=== PATIENT | male | born 1965 | race Caucasian/White ===

== ENCOUNTER 2019-04-15 09:47 | Emergency (ER) | payer MEDICAID ==
[~2019-04-15] VITALS: Ht 185.4 cm; Wt 104.0 kg
[2019-04-15] MEDS ORDERED: ACETAMINOPHEN 500MG TABLET PO ONE (11:30)
[2019-04-15] MEDS ORDERED: PREDNISONE 20MG TABLET PO ONE (11:30)
[2019-04-15 13:49] VITALS: BP 146/97
== END 2019-04-15 13:49 | disposition home or self-care (01) ==
LOC: ER 09:47
DX: S16.1XXA Strain of muscle, fascia and tendon at neck level, initial encounter (principal); V49.40XA Driver injured in collision with unspecified motor vehicles in traffic accident, initial encounter; Y93.89 Activity, other specified; Y92.410 Unspecified street and highway as the place of occurrence of the external cause; I10 Essential (primary) hypertension; E78.00 Pure hypercholesterolemia, unspecified
CPT/HCPCS: 72040; 99283; J7512